=== PATIENT | female | born 1945 | race Caucasian/White ===

== ENCOUNTER 2019-06-21 11:11 | Emergency (ER) | payer OTHER ==
[~2019-06-21] VITALS: Ht 170.2 cm; Wt 90.3 kg
[2019-06-21 11:13] VITALS: BP 181/86
== END 2019-06-21 13:55 | disposition home or self-care (01) ==
LOC: ER 11:11
DX: M79.652 Pain in left thigh (principal); Z96.653 Presence of artificial knee joint, bilateral; Z98.890 Other specified postprocedural states; Z90.710 Acquired absence of both cervix and uterus; W18.39XA Other fall on same level, initial encounter; Y93.89 Activity, other specified; Y92.89 Other specified places as the place of occurrence of the external cause; Y99.8 Other external cause status